=== PATIENT | male | born 1960 | race Caucasian/White ===

== ENCOUNTER 2019-12-20 10:00 | Emergency (ER) | payer OTHER, SELFPAY ==
[2019-12-20 10:10] VITALS: BP 148/83; PULSE 72; RESP 20; TEMP 36.2; O2SAT 96
--- NOTE | 2019-12-20 10:12 | ED.EAR ---
HPI - Ear Problem General Chief complaint: Ear Stated complaint: Ear infection Time Seen by Provider: 12/20/19 10:12 Source: patient and RN notes reviewed History of Present Illness HPI Narrative: Patient is a 59-year-old male who presents the urgent care with complaints of bilateral ear pain. Patient states that it started a few weeks ago and he has been taking Benadryl allergy medication [id number] as well as Advil migraine for his intermittent headache. Patient states that his headache is nearly resolved at this time and his migraines typically are associated with nausea and not pain . Patient states that at the start of the issue he did have a lot of sinus pressure which is now fairly resolved. Patient denies of any cough or shortness of breath. Denies of any known fevers. Denies of putting anything in the ears. States that his ears feel muffled . No other acute complaints. No acute distress noted. Patient read the plan of care. Related Data Home Medications Medication Instructions Recorded Confirmed atorvastatin 40 mg PO DAILY 12/20/19 12/20/19 meloxicam 7.5 mg PO BID 12/20/19 12/20/19 pregabalin 150 mg PO BID 12/20/19 12/20/19 Allergies Allergy/AdvReac Type Severity Reaction Status Date / Time No Known Allergies Allergy Verified 12/20/19 10:18 Review of Systems Review of Systems: Narrative: CONSTITUTIONAL: Denies fever, chills, or sweats. EYES: Denies visual changes, redness, or discharge. ENT: Reports of bilateral otalgia and mild sinus pressure CARDIOVASCULAR: Denies chest pain, palpitations, or edema. RESPIRATORY: Denies cough or dyspnea. GASTROINTESTINAL: Denies abdominal pain, nausea, vomiting, or diarrhea. GENITOURINARY: Denies dysuria or hematuria. SKIN: Denies rash or itching. MUSCULOSKELETAL: Denies back pain, joint pain, or myalgia. NEUROLOGIC: Reports of intermittent headache All other systems reviewed are negative, except as documented in HPI. PMFSH Comments At the time of my signature, I reviewed and agree with the nursing past medical, surgical, social, and family history. There is no relevant family history pertinent to the patient complaint. Exam Narrative: Exam Narrative: GENERAL: This is a well-nourished, well-developed patient, in no apparent distress. HEAD: normocephalic, atraumatic. EYES: PERRL. Sclera clear/white. Vision is grossly intact. EARS: External ears normal, auditory canals clear and without drainage, mild fluid noted behind right TM, mild injection to left TM with moderate effusion without perforation NOSE: External nose normal with no obvious nasal discharge, nares without redness, no rhinorrhea. THROAT: Mucous membranes moist NECK: Neck supple RESPIRATORY: Clear to auscultation. Breath sounds equal bilaterally. No wheezes, rales, or rhonchi. SKIN: warm, intact with no suspicious lesions or rash, good texture and turgor. NEURO: awake, alert, and oriented to person, place and time. There were no obvious focal neurologic abnormalities. EXTREMITIES: No clubbing, cyanosis, or edema. Course Vital Signs Vital signs: Vital Signs Temperature 97.2 F L 12/20/19 10:10 Pulse Rate 72 12/20/19 10:10 Respiratory Rate 20 12/20/19 10:10 Blood Pressure 148/83 H 12/20/19 10:10 Pulse Oximetry 96 12/20/19 10:10 Temperature 97.2 F L 12/20/19 10:10 Pulse Rate 72 12/20/19 10:10 Respiratory Rate 20 12/20/19 10:10 Blood Pressure 148/83 H 12/20/19 10:10 Pulse Oximetry 96 12/20/19 10:10 Reviewed?patient is informed that they may have pre-hypertension or hypertension based on a blood pressure reading in the department. I recommend the patient call the primary care provider listed on their discharge instructions or a physician of their choice this week to arrange follow-up for further evaluation of possible pre-hypertension or hypertension. Medical Decision Making MDM Narrative Medical decision making narrative: Advised the patient to use [id number]
== END 2019-12-20 10:31 | disposition home or self-care (01) ==
PROVIDERS: Emergency Provider Nurse Practitioner Family
DX: H66.92 Otitis media, unspecified, left ear (principal); E78.00 Pure hypercholesterolemia, unspecified; R03.0 Elevated blood-pressure reading, without diagnosis of hypertension
CPT/HCPCS: 99203; G0463